=== PATIENT | female | born 1960 | race Caucasian/White ===

== ENCOUNTER → 2017-10-07 | Outpatient (CLI) | payer OTHER ==
--- NOTE | 2017-10-07 09:24 | XR ---
EXAMINATION TYPE: XR chest 2V DATE OF EXAM: 10/07/2017 COMPARISON: NONE TECHNIQUE: PA and lateral views submitted. HISTORY: Smoking FINDINGS: The lungs are clear and there is no pneumothorax, pleural effusion, or focal pneumonia. Atheroscler otic change aorta. No overt failure. IMPRESSION: 1. No acute process.
--- NOTE | 2017-10-07 09:25 | XR ---
EXAMINATION TYPE: XR knee complete RT DATE OF EXAM: 10/07/2017 COMPARISON: NONE HISTORY: Pain TECHNIQUE: Four views are submitted. FINDINGS: Osseous structures are intact. No acute fracture seen. Mild diffuse osteopenia. Mild narrowing of t he medial compartment of the knee joint. IMPRESSION: 1. No acute fracture or dislocation. 2. Mild arthropathy.
--- NOTE | 2017-10-07 09:26 | XR ---
EXAM TYPE: LUMBAR SPINE X RAY SERIES COMPARISON: NONE HISTORY: Pain TECHNIQUE: 3 views are submitted. FINDINGS: Alignment is anatomic. The pedicles are intact. The transverse processes are intact. There is vasc ular calcifications. Facet arthropathy and degenerative disc disease at levels L3-S1 with the most ma rked findings at L5-S1. IMPRESSION: 1. Multilevel degenerative disc disease with most marked findings at L5-S1.
== END | disposition home or self-care (01) ==
LOC: RADXRMAIN 08:14
PROVIDERS: ATTEND Family Medicine
DX: M51.37 Other intervertebral disc degeneration, lumbosacral region (principal); M12.861 Other specific arthropathies, not elsewhere classified, right knee; Z87.891 Personal history of nicotine dependence
CPT/HCPCS: 71046; 72100

== ENCOUNTER → 2017-10-07 | Outpatient (CLI) | payer BC, OTHER ==
--- NOTE | 2017-10-11 08:33 | MM ---
Reason for exam: screening (asymptomatic). Last mammogram was performed 13 years and 4 months ago. History: Patient is postmenopausal. Family history of breast cancer in 2 paternal aunts, breast cancer in aunt, and premenopausal breast cancer in sister. Physical Findings: A clinical breast exam by your physician is recommended on an annual basis and results should be correlated with mammographic findings. MG Screening Mammo w CAD Bilateral CC and MLO view(s) were taken. No prior studies available for comparison. There are scattered fibroglandular densities. 1.2cm ovoid nodule 6 o'clock central right breast. Irregular focal asymmetry upper outer quadrant left breast at a middle depth. ASSESSMENT: Incomplete: need additional imaging evaluation, BI-RAD 0 RECOMMENDATION: Special view mammogram of both breasts. If lesion persists on supplemental views, image directed ultrasound is recommended. [facility] will attempt to contact patient to return for supplemental views and ultrasound if indicated.
== END | disposition home or self-care (01) ==
LOC: RADMAMWWP 07:47
PROVIDERS: ATTEND Family Medicine
DX: Z12.31 Encounter for screening mammogram for malignant neoplasm of breast (principal); Z80.3 Family history of malignant neoplasm of breast
CPT/HCPCS: 71046; 72100; 77067

== ENCOUNTER → 2019-11-07 | Outpatient (CLI) | payer OTHER ==
--- NOTE | 2019-11-07 14:58 | MM ---
Reason for exam: additional evaluation requested from prior study. Last mammogram was performed 2 years and 1 month ago. History: Patient is postmenopausal. Family history of breast cancer in 2 paternal aunts at age 50, breast cancer in aunt at age 50, and premenopausal breast cancer in sister at age 60. Physical Findings: Nurse did not find any significant physical abnormalities on exam. MG Diagnostic Mammo w CAD JONES Bilateral CC and MLO view(s) were taken. LM and XCCL view(s) were taken of the left breast. Prior study comparison: October 07, 2017, bilateral MG screening mammo w CAD. The breast tissue is heterogeneously dense. This may lower the sensitivity of mammography. Finding: There is an intermediate concern, suspicious 11 x 12 mm equal density (isodense), spiculated irregular mass located 10 cm from the nipple in the upper outer quadrant, middle position of the left breast. There is an oval density right lower inner quadrant, 5cm from the nipple. New finding since October 07, 2017. These results were verbally communicated with the patient and result sheet given to the patient on 11/07/19. ASSESSMENT: Incomplete: need additional imaging evaluation, BI-RAD 0 RECOMMENDATION: Ultrasound of both breasts.
--- NOTE | 2019-11-07 15:00 | USB ---
Reason for exam: additional evaluation requested from abnormal screening. History: Patient is postmenopausal. Family history of breast cancer in 2 paternal aunts at age 50, breast cancer in aunt at age 50, and premenopausal breast cancer in sister at age 60. US Breast Limited BILAT Right limited breast ultrasound including focal area of concern, retroareolar and axilla demonstrates a 1.1 x 0.5 x 0.9cm cystic lesion at 5 o'clock. Left limited breast ultrasound including focal area of concern, retroareolar and axilla demonstrates a 1.8 x 1.3 x 1.3cm spiculated, solid, hypoechoic lesion at 12 o'clock for which a biopsy is recommended. These results were verbally communicated with the patient and result sheet given to the patient on 11/07/19. ASSESSMENT: Highly suggestive of malignancy, BI-RAD 5 RECOMMENDATION: Surgical consultation and ultrasound core biopsy of the left breast. Called Dr. Little's office with mammographic findings and has scheduled an appointment for the patient for 11/16/19 at 7:[address] Roth. Biopsy scheduled for 11/22/19 at 2:00. PRELIMINARY REPORT CALLED AND FAXED TO DR. ROTH ON 11/07/19.
== END ==
LOC: RADMAMWWP 12:52
PROVIDERS: ATTEND Internal Medicine
DX: R92.8 Other abnormal and inconclusive findings on diagnostic imaging of breast (principal)
CPT/HCPCS: 77066

== ENCOUNTER → 2019-11-22 | Outpatient (CLI) | payer OTHER ==
[2019-11-22 09:31] VITALS: BP 148/81; PULSE 54; RESP 18; TEMP 98.2
--- NOTE | 2019-11-22 10:24 | P.GSHP ---
History of Present Illness H&P Date: 11/22/19 Chief Complaint: abnormal left breast mammogram and ultrasound Cindy is a 59-year-old white female seen in consultation for Dr. Little who presents for breast evaluation secondary to an abnormal mammogram and ultrasound. The mammogram was a bilateral mammogram performed on . This revealed an 11 x 12 mm equal density irregular mass at 10:00 in the left breast in the upper outer quadrant. A right lower inner quadrant density was seen 5 cm from the nipple. She subsequently underwent an ultrasound of both breasts. The left breast revealed a 1.8 x 1.3 cm spiculated solid hypoechoic lesion at 12:00 for which biopsy was recommended. The right breast revealed a 1.1 cm cystic lesion at 5:00. The recommendation is for biopsy of the left breast. The patient does not feel anything of concern in her breast. Her last mammgram was eight years ago. She is not complaining of any nipple discharge pain or changes in her breasts. She has not had any recent trauma or infection in the breast. She's not had a breast biopsy in the past. Caffeine: 2 cups per day Smokin/PPD for 30 years chocolate: none Family History: two paternal aunts with breast cancer in 60's of breast cancer sister: breast cancer in 50's Hormonal History: menarche: 13 , breast fed: none, age at first : 19 menopause: 51 BCP: none hormones: none Past Surgical History: 2 C Sections cardiac stint 2003 Medical History: coronary artery disease hypothyroid Social HIstory: smoke: 1/PPD alcohol: none drugs: none - Constitutional Constitutional: Reports sweats - EENT Eyes: denies blurred vision, denies pain Ears: deny: decreased hearing, tinnitus Ears, nose, mouth and throat: Denies headache, Denies sore throat - Breasts Breasts: bilateral: as per HPI - Cardiovascular Comment: cardiac stint status post Myocardial infarction Cardiovascular: Reports high blood pressure - Respiratory Comment: smoker - Gastrointestinal Gastrointestinal: Denies abdominal pain, Denies diarrhea, Denies nausea, Denies vomiting - Genitourinary (Female) Genitourinary: Denies dysuria, Denies hematuria - Menstruation Menstruation: Reports postmenopausal - Musculoskeletal Musculoskeletal: Denies myalgias - Integumentary Integumentary: Denies pruritus, Denies rash - Neurological Neurological: Denies numbness, Denies weakness - Psychiatric Psychiatric: Reports anxiety, Denies depression - Endocrine Comment: hypothyroid Endocrine: Denies fatigue, Denies weight change - Hematologic/Lymphatic Comment: aspirin 81mg - Allergic/Immunologic Allergic/Immunologic: Reports as per HPI Past Medical History Past Medical History: Hypertension, Thyroid Disorder History of Any Multi-Drug Resistant Organisms: None Reported Additional Past Surgical History / Comment(s): CARDIAC STENT PLACED 2003 Past Anesthesia/Blood Transfusion Reactions: No Reported Reaction Past Psychological History: No Psychological Hx Reported Smoking Status: Current every day smoker Past Alcohol Use History: None Reported Past Drug Use History: Marijuana Medications and Allergies Home Medications Medication Instructions Recorded Confirmed Type Aspirin [Adult Low Dose Aspirin EC] 81 mg PO DAILY 11/09/19 11/22/19 History Atenolol 25 mg PO DAILY 11/09/19 11/22/19 History Levothyroxine Sodium [Synthroid] 88 mcg PO DAILY 11/09/19 11/22/19 History Lisinopril [Zestril] 40 mg PO DAILY 11/09/19 11/22/19 History Multivitamins, Thera [Multivitamin 1 tab PO DAILY 11/09/19 11/22/19 History (formulary)] Zolpidem Tartrate [Ambien] 10 mg PO HS 11/09/19 11/22/19 History Vortioxetine Hydrobromide 20 mg PO DAILY 11/22/19 11/22/19 History [Trintellix] Allergies Allergy/AdvReac Type Severity Reaction Status Date / Time No Known Allergies Allergy Verified 11/22/19 09:25 Surgical - Exam Vital Signs Temp Pulse Resp BP Pulse Ox 98.2 F 54 L 18 148/81 96 11/22/19 09:28 11/22/19 09:28 11/22/19 09:28 11/22/19 09:28 11/22/19 09:28 BMI 34.5 - General well developed, well nourished, no distress, obese - Eyes normal ocular movement - ENT no hearing loss, no congestion - Neck no masses, trachea midline - Respiratory normal expansion, normal respiratory effort, clear to percussion, clear to auscultation - Cardiovascular Rhythm: regular Heart Sounds: normal: S1, S2 - Abdomen Abdomen: soft, non tender, no guarding, no rigid, no rebound - Integumentary normal turgor 1 cm skin lesion under left eye suspicious for basal cell cancer - Neurologic no disoriented, no combative - Musculoskeletal normal gait, normal posture - Psychiatric oriented to time, oriented to person, oriented to place, speech is normal, memory intact breast exam BRA 40D ptosis grade 3 inspection: No skin lesions of concern, mild pocking related to probable skin cystic changes inferior aspect of right breast, no nipple inversion, no evidence of active infection at this time Papation: right breast: Superficial exam fibrocystic changes, no dominant masses or nodules of concern, some mild pocketing of the skin most likely related to cystic changes which have healed Right axilla: No adenopathy of concern Left breast: Multi-positional exam fibrocystic changes particular attention in the upper outer quadrant area does not reveal any palpable lesion Left axilla: No adenopathy of concern Results mammogram and ultrasound reviewed Assessment and Plan Assessment: Impression: coronary artery disease hypothyroid Mammographic abnormality left breast Ultrasound abnormality near the left breast Fibrocystic breast changes Family history breast cancer Patient coronary stent in place status post myocardial infarction 2003 Plan: 1. Ultrasound guided core biopsy left breast Lesion is highly suspicious of this were negative would recommend needle local excisional biopsy in the operating room and consider discordant 2. I've had a discussion with the patient regarding the probable pathology and we are going to obtain a tentative or date 3. Clearance from Dr. Little 4. Clearance from cardiology 5. Presentation of case at tumor board Cc: Dr. Little, Dr. Robb encounter 50 minutes, > 50% of time in planning and counselling
== END ==
LOC: WWCWWP 09:12
PROVIDERS: ATTEND Surgery
DX: Z53.9 Procedure and treatment not carried out, unspecified reason (principal)

== ENCOUNTER → 2019-11-22 | Day surgery (SDC) | payer OTHER ==
[2019-11-22 13:31] VITALS: RESP 16
[2019-11-22 14:35] VITALS: BP 119/78; PULSE 64; TEMP 98.3
--- NOTE | 2019-11-22 16:25 | USB ---
EXAMINATION TYPE: US biopsy breast VAD LT, MG diagnostic mammo LT wo CAD DATE OF EXAM: 11/22/2019 CLINICAL HISTORY: R92.8 abn mammogram. TECHNIQUE: Ultrasound guided core biopsy of left breast. COMPARISON: 11/07/2019 FINDINGS: The procedure of ultrasound guided core biopsy was explained to the patient. Benefits, alternatives, and risks were discussed. An informed consent was then obtained. Preprocedural timeout was performed. The patient was placed in supine positioning for imaging and for the procedure. The overlying skin was prepped and draped in usual sterile fashion. 10 cc of 1% lidocaine was used as anesthetic into the skin and subcutaneous tissue up to a 1.8 cm mass at the 12:00 position in the left breast. Under ultrasound guidance, a 12-gauge vacuum assisted biopsy gun device was used to obtain 6 core samples. Following this, a ribbon-shaped biopsy marker was left in the mass. The patient tolerated the procedure well without any immediate complication. The patient was kept in the radiology department for short stay after the procedure and then discharged home in stable condition. Postprocedure mammogram demonstrates appropriate biopsy marker placement without migration. IMPRESSION: Successful, uncomplicated ultrasound guided core biopsy of area of a highly suspicious 1.8 cm mass at the 12:00 position in the left breast, full pathology results to follow. 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 Adjacent breast shows fibrotic breast parenchyma. See note. Recommendation Surgical consult of the left breast. Definitive surgical management. BRITTANY
== END ==
LOC: RADUSWWP 09:19
PROVIDERS: ATTEND Surgery
DX: C50.912 Malignant neoplasm of unspecified site of left female breast (principal); N60.32 Fibrosclerosis of left breast; Z17.0 Estrogen receptor positive status [ER+]
CPT/HCPCS: 88305; 88342; 88341; 77065; 19083; A4648; J2001

== ENCOUNTER → 2019-12-06 | Outpatient (CLI) | payer OTHER ==
[2019-12-06 12:55] VITALS: BP 116/80; PULSE 77; RESP 18; TEMP 97.9
--- NOTE | 2019-12-06 14:03 | P.PN ---
Subjective Progress Note Date: 12/06/19 Principal diagnosis: stage IA left breast cancer Cindy is a 59-year-old white female who underwent an ultrasound-guided core biopsy of the left breast on 11-22-19. Her pathology revealed a low-grade infiltrating ductal carcinoma. This is approximately 1.2 cm in size. This is a T1 N0 M0 ER/MO positive HER-2/asim negative G N1 lesion making this a stage IA lesion. The patient tolerated the biopsy with no difficulty. Her bra size is 38D on the left and 38 mL on the right. She has had asymmetry of the breast for a long period of time. We will discuss surgical treatment options which would include mastectomy plus or minus reconstruction, or lumpectomy via a reduction mastopexy incision versus a [id number] approach. The patient wishes the procedure to be done via the reduction mastopexy incision. She understands that she will have asymmetry of the breast and a symmetry procedure on the contralateral breast will be done after radiation therapy on the left side. The patient has also been told about risks including bleeding, infection, and reaction to the anesthetic. Additional positive margin would require further surgery as with inability to locate and remove the area of concern at the first surgery secondary to the clip moving her the needle slipping. The patient and her daughter understand that she wishes to proceed. Objective - Vital Signs Vital signs: Vital Signs Temp 97.9 F 12/06/19 12:53 Pulse 77 12/06/19 12:53 Resp 18 12/06/19 12:53 BP 116/80 12/06/19 12:53 Pulse Ox 96 12/06/19 12:53 Intake & Output 12/05/19 12/06/19 12/06/19 18:59 06:59 18:59 Weight 81.647 kg - Exam BMI 30.9 - Constitutional General appearance: Present: obese - EENT Eyes: Present: EOMI ENT: Present: hearing grossly normal - Respiratory Respiratory: bilateral: CTA - Cardiovascular Rhythm: regular Heart sounds: normal: S1, S2 - Integumentary Integumentary: Present: normal turgor - Musculoskeletal Musculoskeletal: Present: gait normal - Psychiatric Psychiatric: Present: A&O x's 3, appropriate affect, intact judgment & insight - Additional findings Additional findings: Breast examination: Inspection: Right breast smaller than left breast Grade 3 ptosis Left breast: Area of biopsy site clean and dry no evidence of infection Left axilla: No adenopathy of concern Assessment and Plan Assessment: Impression: 1. Stage IA left breast cancer 2. Patient prior myocardial infarction cardiac clearance necessary 3. Patient smoker have requested that she stop smoking before the surgery 4. Clearance by Dr. Little 5. stop aspirin if ok with cardiology Plan: 1. Needle localization lumpectomy left breast via reduction mastopexy incision with tissue rearangement 2. [place] node injection, sentinel node biopsy possible axillary node dissection the left axilla 3. Obtain clearance from cardiology and Dr. Little CC: Dr. Little encounter 45 minutes, > 50% of time in planning and counselling Time with Patient: Greater than 30
== END ==
LOC: WWCWWP 12:40
PROVIDERS: ATTEND Surgery
DX: Z53.9 Procedure and treatment not carried out, unspecified reason (principal)

== ENCOUNTER 2019-12-11 07:38 | Day surgery (SDC) | payer OTHER ==
[2019-12-10 09:55] VITALS: BMI 30.9
[~2019-12-11 07:38] MED LIST: DEXAMETHASONE SOD PHOSPHATE 10 MG/ML 1 ML VIAL IV ONE; HEPARIN SODIUM,PORCINE 5,000 UNIT/ML 1 ML VIAL SQ ONE; HYDROmorphone 0.5 MG/0.5 ML SYRINGE IVP PRN; LIDOCAINE 1% (10MG/ML) FOR IV START INTRADERMA PRN; ONDANSETRON 4 MG/2 ML VIAL IVP ONE; Pre Op ABX Message 1 EACH MISC MISCELLANE ONE; SCOPOLAMINE 1.5MG/72HR PATCH TRANSDERM ONE
[2019-12-11] MEDS: LACTATED RINGERS 1,000 ML IV SCH ×2 (08:00→12:52)
[2019-12-11] MEDS ORDERED: ALPRAZolam 0.5 MG TAB PO ONE (08:12)
[2019-12-11] MEDS ORDERED: LIDOCAINE 1% INJ 10MG/ML (20 ML MDV) SQ ONE ×4 (08:58→11:45)
[2019-12-11] MEDS ORDERED: LIDOCAINE 1%-EPI 1:100,000 20 ML VIAL SQ ONE (08:58)
--- NOTE | 2019-12-11 09:36 | NM ---
EXAMINATION TYPE: NM sentinel node injection DATE OF EXAM: 12/11/2019 COMPARISON: NONE HISTORY: Left breast cancer. TECHNIQUE AND FINDINGS: The procedure of sentinel lymph node injection was explained to the patient. The benefits, alternatives, and risks were discussed. An informed consent was then obtained. Overlying skin is cleaned with sterile alcohol. Following this, 520 uCi Tc99m Tilmanocept was inject ed in the upper outer aspect of the left nipple intradermally. The patient tolerated the procedure well without any immediate complication. The patient was kept in the radiology department for short stay after the procedure and then taken to surgery for surgical p rocedure what is presumed intraoperative gamma probe will be used for sentinel lymph node detection. IMPRESSION: Left breast radiotracer injection for sentinel node localization as above.
--- NOTE | 2019-12-11 09:44 | P.PN ---
Progress Note - Text Progress Note Date: 12/11/19 Initially we were going to remove this tumor via a reduction mammoplasty technique. However with the leal virus situation The patient has opted for the simplest technique possible and we will proceed to do a lumpectomy withut a reduction mammoplasty at this time. She understands the risks and benefits and wishes to proceed.
[2019-12-11] MEDS ORDERED: SUCCINYLCHOLINE CHLORIDE 100 MG/5 ML SYR IV ONE (10:00)
[2019-12-11] MEDS ORDERED: LIDOCAINE 1% INJ 10MG/ML (20 ML MDV) ONE (10:00)
[2019-12-11] MEDS ORDERED: MIDAZOLAM 2 MG/2 ML VIAL ONE (10:00)
[2019-12-11] MEDS ORDERED: ePHEDrine SULFATE/0.9% NACL/PF 50 MG/5 ML SYRINGE IV ONE (10:00)
[2019-12-11] MEDS ORDERED: HYDROmorphone (PF) 1 MG/ML ONE (10:00)
[2019-12-11] MEDS ORDERED: fentaNYL (PF) 50 MCG/ML 2 ML AMP ONE (10:00)
[2019-12-11] MEDS ORDERED: PROPOFOL 10 MG/ML 20 ML VIAL IV ONE (10:00)
[2019-12-11] MEDS ORDERED: PHENYLEPHRINE-0.9% NACL SYG 1 MG/10 ML SYRINGE ONE (10:00)
[2019-12-11] MEDS ORDERED: LACTATED RINGERS 1,000 ML IV ONE (10:58)
--- NOTE | 2019-12-11 11:03 | MM ---
EXAMINATION TYPE: MG pre op needle loc LT, MG surgical specimen LT DATE OF EXAM: 12/11/2019 COMPARISON: Prior mammogram and ultrasound November 22, 2019 and older studies. CLINICAL HISTORY: Low grade infiltrating ductal carcinoma on recent ultrasound- guided biopsy. TECHNIQUE: Needle localization with wire placement and surgical excision of area of concern in the left breast. FINDINGS: The procedure of needle localization with wire placement and than surgical excision was explained to the patient. Benefits, alternatives, and risks were discussed. An informed consent was then obtained. The shortest pathway for procedure was chosen. Shortest pathway was lateral approach. Persistent just under 1 cm spiculated lesion with adjacent clip. The overlying skin was prepped and draped in usual sterile fashion. Lidocaine buffered was used as anesthetic into the skin. Lidocaine with epinephrine is used as anesthetic into the deeper tissue up to the level of area of concern. A 7 cm needle was used. It was placed via a lateral approach under mammographic guidance. Subsequent 90 degrees mammogram show the needle to be in satisfactory position relative to the targeted area. At this point, wire was placed and the needle was withdrawn. The wire was fixed to patient's skin. Images were marked for surgeon. The patient tolerated the procedure well without any immediate complication. The patient was kept in the radiology department for short stay after the procedure and then taken to surgery for surgical excision. Targeted lesion and clip and wire are identified in specimen mammogram. The patient was kept in hospital for short stay after the procedure and then discharged home in stable condition. IMPRESSION: Successful, uncomplicated needle localization with wire placement and surgical excision of targeted 1 cm spiculated lesion and clip in the left breast, full pathology results to follow. Pathology Results: Malignant A. LEFT SENTINEL LYMPH NODE, BIOPSY: Four lymph nodes negative for metastatic adenocarcinoma as documented on H+E as well as appropriately controlled immunohistochemical stains for cytokeratin 7 and JER. B. LEFT BREAST, NEEDLE LOCALIZATION LUMPECTOMY: 12 x 10 x 8 mm infiltrating low grade duct carcinoma associated with microcalcifications and duct carcinoma in situ (cribriform type). Tumor extends to within 3 mm of the purple inked/posterior margin of excision (closest margin). Appropriately controlled immunohistochemical studies for Calponin, p63 and smooth muscle myosin heavy chain document the absence of myoepithelial cells rimming malignant ducts on blocks B2 and B3. These findings are confirmatory of infiltrating ductal carcinoma in both blocks and allow accurate measurement of the distance of invasive carcinoma away from inked margins. See note. Recommendation Surgical consult of the left breast. MTDD
--- NOTE | 2019-12-11 11:59 | P.OP ---
Date of Procedure: 12/11/19 Preoperative Diagnosis: left breast cancer Postoperative Diagnosis: same Procedure(s) Performed: Left breast needle localization excisional lumpectomy, tissue transfer, sentinel node biopsy Anesthesia: GARRYA Surgeon: Lynette Roht Estimated Blood Loss (ml): 10 IV fluids (ml): 1,500 Pathology: other (Breast tissue, sentinel lymph node) Condition: stable Disposition: same day Indications for Procedure: Biopsy-proven left breast cancer Operative Findings: Fibrofatty breast breast tissue Description of Procedure: Edward is a 51-year-old white female who was diagnosed with a left breast cancer. She was initially considering an ankle plastic reduction mammoplasty for with resection of the tumor. However, secondary to cholelithiasis she wanted the simplest procedure which we assured tissue to be discharged home the same day. We therefore have opted for a lumpectomy and sentinel node biopsy. The patient is aware of the risks and benefits and wishes to proceed. The patient was brought to the operating room and the left breast and axilla were prepped and draped in a sterile fashion. An incision was made at the area of the needle and dissected to the end of the needle. Surrounding tissue was excised. Radiograph of the specimen revealed the area of concern had been removed. The wound was irrigated and examined for hemostasis. Titanium clips were placed. Prior to sending the specimen for radiographic was painted for orientation. The tissues were then mobilized approximately 50 cm of tissue were mobilized to close the defect. The defect was closed drawing the tissue pillars together using 3-0 Vicryl suture. The subcutaneous tissues were closed using 3-0 Vicryl suture followed by 4-0 Monocryl. The instruments and gloves were changed appropriately. The area of the axilla was approached. In the axilla the neoprobe was used to identify the area of greatest radioactivity. An incision was made at this site and surrounding tissue was carefully dissected into the area of the axillary tissue. An enlarged lymph node was palpated and this was radioactive. This was removed using the Harmonic scalpel as well as careful dissection. The 10 second count an open was 4430. The background count was approximately 40. The patient did not have additional palpable adenopathy of concern. The lymph node was sent for permanent section. Evaluated the axilla for hemostasis. It was well irrigated. The deep tissues were closed using 3-0 Vicryl suture. The subcutaneous tissue was closed with a 3-0 Vicryl suture followed by 4-0 Monocryl. Surgical glue was applied to both incisions. The patient tolerated the procedure in stable condition. All instrument and sponge counts were correct at the end of the case.
--- NOTE | 2019-12-11 12:00 | P.NAPBC ---
NAPBC Queries - NAPBC Queries Was patient's case review presented at [facility] tumor board? If no, comment.: No (tumor board cancelled secondary to leal virus) Was patient's pathology reviewed at [facility]? If no, comment.: Yes Was breast conservation surgery offered? If no, comment.: Yes Was sentinel node biopsy offered? If no, comment.: Yes Was diagnosis confirmed by percutaneous core biopsy? If no, comment.: Yes Is patient mastectomy patient?: No Clinical Stage: Stage IA
--- NOTE | 2019-12-11 12:02 | P.DS ---
Providers Attending physician: Lynette Roth Primary care physician: Anabel Sheth Plan - Discharge Summary Discharge Rx Participant: Yes New Discharge Prescriptions: No Action Aspirin [Adult Low Dose Aspirin EC] 81 mg PO DAILY Lisinopril [Zestril] 40 mg PO DAILY Multivitamins, Thera [Multivitamin (formulary)] 1 tab PO DAILY Zolpidem Tartrate [Ambien] 10 mg PO HS ALPRAZolam [Xanax] 0.25 mg PO Q8HR PRN PRN Reason: Anxiety Atenolol [Tenormin] 50 mg PO DAILY Vortioxetine Hydrobromide [Trintellix] 10 mg PO QAM Levothyroxine Sodium [Synthroid] 175 mcg PO QAM Furosemide [Lasix] 20 mg PO DAILY PRN PRN Reason: swelling Discharge Medication List Aspirin [Adult Low Dose Aspirin EC] 81 mg PO DAILY 11/09/19 [History] Lisinopril [Zestril] 40 mg PO DAILY 11/09/19 [History] Multivitamins, Thera [Multivitamin (formulary)] 1 tab PO DAILY 11/09/19 [History] Zolpidem Tartrate [Ambien] 10 mg PO HS 11/09/19 [History] ALPRAZolam [Xanax] 0.25 mg PO Q8HR PRN 12/10/19 [History] Atenolol [Tenormin] 50 mg PO DAILY 12/10/19 [History] Furosemide [Lasix] 20 mg PO DAILY PRN 12/10/19 [History] Levothyroxine Sodium [Synthroid] 175 mcg PO QAM 12/10/19 [History] Vortioxetine Hydrobromide [Trintellix] 10 mg PO QAM 12/10/19 [History] Follow up Appointment(s)/Referral(s): Lynette Roth MD [STAFF PHYSICIAN] - 1 Week Activity/Diet/Wound Care/Special Instructions: do not dirve until seen by Dr. Bangura wear bra at all times may shower after 48 hours Discharge Disposition: HOME SELF-CARE
[2019-12-11 12:26] VITALS: TEMP 97.6
[2019-12-11 13:05] VITALS: RESP 17
[2019-12-11 13:21] VITALS: BP 127/72; PULSE 84
== END 2019-12-11 13:36 | disposition home or self-care (01) ==
LOC: OR 07:38
PROVIDERS: ATTEND Surgery
DX: C50.912 Malignant neoplasm of unspecified site of left female breast (principal); I10 Essential (primary) hypertension; I25.10 Atherosclerotic heart disease of native coronary artery without angina pectoris; F17.210 Nicotine dependence, cigarettes, uncomplicated; E78.2 Mixed hyperlipidemia; E07.9 Disorder of thyroid, unspecified; Z79.82 Long term (current) use of aspirin; Z79.890 Hormone replacement therapy; Z79.899 Other long term (current) drug therapy; Z79.02 Long term (current) use of antithrombotics/antiplatelets; Z98.61 Coronary angioplasty status
CPT/HCPCS: 38525; 19301; 88342; 88307; 88341; 76098; 38792; A9520; J2250; J1644; J1100; J2405; J2001; J3010; J1170; J2370; J0330; J2704

== ENCOUNTER 2020-11-09 12:41 | Emergency (ER) | payer OTHER ==
[2020-11-09 12:56] VITALS: RESP 18; TEMP 97.9
--- NOTE | 2020-11-09 13:18 | XR ---
EXAMINATION TYPE: XR ankle complete RT DATE OF EXAM: 11/09/2020 COMPARISON: NONE HISTORY: Pain TECHNIQUE: Frontal, lateral and oblique images of the right ankle are obtained. COMPARISON: None. FINDINGS: Oblique fracture distal fibula with displacement noted of approximately 3 mm. Medial malleo lar fracture with displacement noted of approximately 5 mm. Anterior malleolar fracture component sug gested. There is instability seen about the ankle mortise. Extensive soft tissue swelling. IMPRESSION: Fractures as noted above.
--- NOTE | 2020-11-09 13:51 | ED ---
Lower Extremity Injury HPI - General Chief Complaint: Extremity Injury, Lower Stated Complaint: Fall,R Ankle Fx Time Seen by Provider: 11/09/20 12:45 Source: patient, EMS Mode of arrival: EMS Limitations: physical limitation - History of Present Illness Initial Comments: Cindy is a pleasant 60-year-old female who presents to the emergency department today via ambulance for evaluation of right ankle injury. Patient reports that she tripped over a Chihuahua falling to the ground and immediately noted pain in her right ankle and was unable to bear weight so EMS was called. EMS reports obvious deformity - Related Data Home Medications Medication Instructions Recorded Confirmed Aspirin [Adult Low Dose Aspirin EC] 81 mg PO DAILY 11/09/19 12/11/19 Multivitamins, Thera [Multivitamin 1 tab PO DAILY 11/09/19 12/11/19 (formulary)] Zolpidem Tartrate [Ambien] 10 mg PO HS 11/09/19 12/11/19 lisinopriL [Zestril] 40 mg PO DAILY 11/09/19 12/11/19 ALPRAZolam [Xanax] 0.25 mg PO Q8HR PRN 12/10/19 12/11/19 Atenolol [Tenormin] 50 mg PO DAILY 12/10/19 12/11/19 Furosemide [Lasix] 20 mg PO DAILY PRN 12/10/19 12/11/19 Levothyroxine Sodium [Synthroid] 175 mcg PO QAM 12/10/19 12/11/19 Vortioxetine Hydrobromide 10 mg PO QAM 12/10/19 12/11/19 [Trintellix] Allergies Allergy/AdvReac Type Severity Reaction Status Date / Time No Known Allergies Allergy Verified 11/09/20 12:55 Review of Systems ROS Statement: Those systems with pertinent positive or pertinent negative responses have been documented in the HPI. ROS Other: All systems not noted in ROS Statement are negative. Past Medical History Past Medical History: Hypertension, Thyroid Disorder Additional Past Medical History / Comment(s): breast cancer, has a "bad knee"-walks slow Last Myocardial Infarction Date:: 02/2004 History of Any Multi-Drug Resistant Organisms: None Reported Past Surgical History: Breast Surgery, Section, Heart Catheterization With Stent Additional Past Surgical History / Comment(s): CARDIAC STENT PLACED 2003 Past Anesthesia/Blood Transfusion Reactions: No Reported Reaction Date of Last Stent Placement:: 2003 Past Psychological History: No Psychological Hx Reported Past Alcohol Use History: None Reported Past Drug Use History: Marijuana - Past Family History Mother Family Medical History: Cancer General Exam - General Exam Comments Initial Comments: Physical Exam GENERAL: Patient is well-developed and well-nourished. Patient is nontoxic and well-hydrated and is in no distress. HENT: Normocephalic, Atraumatic. EYES: PERRL, EOMI PULMONARY: Unlabored respirations. CARDIOVASCULAR: RRR Warm and well perfused extremities ABDOMEN: Non-distended SKIN: No rashes or bruising : Deferred NEUROLOGIC: Alert and oriented Normal speech Normal gait MUSCULOSKELETAL: Obvious deformity and swelling of the right ankle, neurovascularly intact PSYCHIATRIC: No SI/HI Limitations: physical limitation Course Vital Signs 11/09/20 11/09/20 12:44 13:59 Temperature 97.9 F Pulse Rate 61 64 Respiratory 18 18 Rate Blood Pressure 131/92 123/77 O2 Sat by Pulse 96 95 Oximetry Medical Decision Making - Medical Decision Making She was seen and evaluated history is obtained from the patient and EMS Patient received pain medication in route to the hospital reports Significant improvement in discomfort X-rays confirm a bimalleolar fracture patient was splinted and given crutches patient will be discharged home to follow up with orthopedics outpatient Disposition Clinical Impression: Bimalleolar ankle fracture Disposition: HOME SELF-CARE Condition: Stable Instructions (If sedation given, give patient instructions): Ankle Fracture (DC) Is patient prescribed a controlled substance at d/c from ED?: No Referrals: Domenic Little MD [Primary Care Provider] - 1-2 days Don Milton MD [STAFF PHYSICIAN] - 1-2 days
[2020-11-09 14:41] VITALS: BP 137/91; PULSE 92
== END 2020-11-09 14:35 | disposition home or self-care (01) ==
LOC: EC 12:41
DX: S82.841A Displaced bimalleolar fracture of right lower leg, initial encounter for closed fracture (principal); I10 Essential (primary) hypertension; E07.9 Disorder of thyroid, unspecified; Z79.890 Hormone replacement therapy; Z79.899 Other long term (current) drug therapy; Z95.5 Presence of coronary angioplasty implant and graft; Z85.3 Personal history of malignant neoplasm of breast; W01.0XXA Fall on same level from slipping, tripping and stumbling without subsequent striking against object, initial encounter
CPT/HCPCS: 29515; 99283

== ENCOUNTER 2020-11-25 08:14 | Day surgery (SDC) | payer OTHER ==
[2020-11-19 13:15] VITALS: BMI 31.8
[~2020-11-25 08:14] MED LIST changes: -DEXAMETHASONE SOD PHOSPHATE 10 MG/ML 1 ML VIAL IV ONE; +DEXAMETHASONE SOD PHOSPHATE 4 MG/ML 1 ML VIAL IV ONE; -HEPARIN SODIUM,PORCINE 5,000 UNIT/ML 1 ML VIAL SQ ONE; -HYDROmorphone 0.5 MG/0.5 ML SYRINGE IVP PRN; +LACTATED RINGERS 1,000 ML IV SCH; +MIDAZOLAM 2 MG/2 ML VIAL IV PRN; -Pre Op ABX Message 1 EACH MISC MISCELLANE ONE; -SCOPOLAMINE 1.5MG/72HR PATCH TRANSDERM ONE; +fentaNYL (PF) 50 MCG/ML 2 ML AMP IVP PRN
[2020-11-25 09:51] VITALS: RESP 16; TEMP 98.1
--- NOTE | 2020-11-25 10:46 | P.ANPRN ---
Procedure Note - Anesthesia - Nerve Block Performed Right Adductor Canal Single Time Out Performed: Yes (921) Date of Procedure: 11/25/20 Procedure Start Time: : Procedure Stop Time: 09:33 Location of Patient: PreOp Indication: Acute Post-Operative Pain, Requested by Surgeon Specifically requested for management of pain by DrLuh: Amauri Cortés Sedation Type: Sedate with meaningful contact maintained Preparation: Sterile Prep Position: Supine Catheter: None Needle Types: Pajunk Needle Gauge: 21 Ultrasound used to visualize needle placement: Yes Ultrasound used to observe medication spread: Yes Injectate: 0.5% Ropivacaine (see comment for volume) (15cc + Decadron 4mg) Blood Aspirated: No Pain Paresthesia on Injection Noted: No Resistance on Injection: Normal Image Stored and Saved: Yes Events: Uneventful and Well Tolerated Right Popliteal Single Time Out Performed: Yes (921) Date of Procedure: 11/25/20 Procedure Start Time: :22 Procedure Stop Time: 09:26 Location of Patient: PreOp Indication: Acute Post-Operative Pain, Requested by Surgeon Specifically requested for management of pain by Dr.: Amauri Cortés Sedation Type: Sedate with meaningful contact maintained Preparation: Sterile Prep Position: Supine Catheter: None Needle Types: Pajunk Needle Gauge: 21 Ultrasound used to visualize needle placement: Yes Ultrasound used to observe medication spread: Yes Injectate: 0.5% Ropivacaine (see comment for volume) (15cc + decadron 4mg) Blood Aspirated: No Pain Paresthesia on Injection Noted: No Resistance on Injection: Normal Image Stored and Saved: Yes Events: Uneventful and Well Tolerated
[2020-11-25] MEDS ORDERED: NEOSTIGMINE 1 MG/ML 10 ML VIAL ONE (11:19)
[2020-11-25] MEDS ORDERED: SUCCINYLCHOLINE CHLORIDE 100 MG/5 ML SYR IV ONE (11:19)
[2020-11-25] MEDS ORDERED: ROCURONIUM 10 MG/ML (5 ML VIAL) IV ONE (11:19)
[2020-11-25] MEDS ORDERED: PROPOFOL 10 MG/ML 20 ML VIAL IV ONE (11:19)
[2020-11-25] MEDS ORDERED: fentaNYL (PF) 50 MCG/ML 2 ML AMP ONE (11:19)
[2020-11-25] MEDS ORDERED: ePHEDrine SULFATE/0.9% NACL/PF 50 MG/5 ML SYRINGE IV ONE (11:19)
[2020-11-25] MEDS ORDERED: MIDAZOLAM 2 MG/2 ML VIAL ONE (11:19)
[2020-11-25] MEDS ORDERED: GLYCOPYRROLATE 0.2 MG/ML 2 ML VIAL ONE (11:19)
[2020-11-25] MEDS ORDERED: DEXAMETHASONE SOD PHOSPHATE 4 MG/ML 1 ML VIAL ONE (11:19)
[2020-11-25] MEDS ORDERED: ROPIVACAINE 5 MG/ML 30 ML VIAL ONE (11:19)
[2020-11-25] MEDS ORDERED: LIDOCAINE 1% INJ 10MG/ML (20 ML MDV) ONE (11:19)
[2020-11-25] MEDS ORDERED: LACTATED RINGERS 1,000 ML IV ONE (12:13)
--- NOTE | 2020-11-25 13:17 | XR ---
EXAMINATION TYPE: XR ankle limited RT DATE OF EXAM: 11/25/2020 COMPARISON: NONE TECHNIQUE: One views submitted HISTORY: Post op FINDINGS: There is postoperative change in near anatomic alignment. There is soft tissue edema and emphysema. Surgical alona noted. IMPRESSION: 1. Postoperative change. Appears in near-anatomic alignment
--- NOTE | 2020-11-25 13:22 | FL ---
EXAMINATION TYPE: FL guidance operating room DATE OF EXAM: 11/25/2020 HISTORY: Fluoroscopy time 57 seconds of fluoroscopy provided. IMPRESSION: 1. Fluoroscopy time.
[2020-11-25 16:01] VITALS: BP 122/75; PULSE 67
--- NOTE | 2020-11-26 11:48 | OP ---
OPERATIVE REPORT DATE OF SURGERY: November 25, 2020. PREOPERATIVE DIAGNOSIS: Displaced bimalleolar fracture of the right ankle. POSTOPERATIVE DIAGNOSIS: Displaced bimalleolar fracture of the right ankle. PROCEDURE: Open reduction, internal fixation of bimalleolar ankle fracture, right. SURGEON: Amauri Cortés DPM ANESTHESIA: General with preoperative nerve block. HEMOSTASIS: Right thigh tourniquet at 250 mmHg. ESTIMATED BLOOD LOSS: Minimal. MATERIALS: One Arthrex precontoured lateral malleolar fracture plate with associated screws and two 4.0 cannulated screws. INJECTABLES: None. SPECIMENS: None. COMPLICATIONS: None. OPERATIVE REPORT IS FOLLOWS: Prior to the patient being brought to the operative room, Anesthesia administered a nerve block on the right lower extremity utilizing ultrasound guidance and mild sedation. The patient was then transferred to the operating room and placed on the table in supine position. Timeout was taken to confirm correct patient identifiers, correct site of surgery and correct procedure. When the room was in agreement, the patient was intubated and placed under general anesthetic. A bump was placed underneath the right hip to internally rotate the right leg. A well-padded tourniquet was placed on the right thigh and then the right leg was prepped and draped in usual manner. The leg was exsanguinated with an Esmarch bandage and then elevated for 2 minutes. The knee was slightly flexed and the tourniquet was inflated to 250 mmHg. Attention was directed over the lateral aspect of the ankle where a linear incision was made over the lateral malleolus. This deepened down to the subcutaneous tissue careful to identify, avoid and retract any neurovascular structures and cauterize any bleeding vessels. Dissection was continued down to the periosteum which was incised down to fracture and reflected anteriorly and posteriorly. The fracture was identified and the fracture fragments to remove any hematoma or interposing soft tissue. Once that was completed, the ankle was held in inversion and then bone reduction clamps were used to rotate and reduce the fracture and then lock it in place. Once that was completed, fluoroscopy was used to check the alignment. There was restored length of the fibula and the fracture was well reduced. An interfragmentary screw was inserted from posterior to anterior perpendicular to the fracture line. This was due to the orientation of the fracture necessitating this approach. The screw head was buried flush so that it did not irritate the peroneal tendons. Once that was completed, the bone reduction forceps was removed and the fluoroscopy was used to make sure that the correction was maintained, which it was. Then an Arthrex precontoured lateral malleolar plate was placed over the fracture and then under fluoroscopy was positioned correctly and then temporarily fixated, three 3.5 locking screws were placed proximal to the fracture and then distal 3.0 locking screws were placed, each one under direct fluoroscopic visualization during the drilling process so that the ankle joint was not entered with a drill through the lateral gutter. Measurement of the screw length was done the same way and then all the screws were placed and then fluoroscopy was used to make sure that none of them were in the ankle joint, which they were not, however, they were all positioned correctly and the fracture was well reduced with maintained length of the fibula. The wound was irrigated with antibiotic saline. The deep closure was done with 2-0 Vicryl. Subcutaneous closure was done with 4-0 Monocryl. Skin closure was done with alona. Then attention was directed to the medial aspect of the ankle where a curvilinear incision made over the medial malleolus and then deepened down to the subcutaneous tissue careful to identify, avoid and retracting neurovascular structures and cauterizing the vessels. Dissection was then continued down to the periosteum which was incised just over the fracture itself from anterior to posterior. Any interposing soft tissue was removed with the ankle in slight inversion. Bone reduction forceps was used to reduce the fracture. Once that appeared to be completed, fluoroscopy was used to make sure that the reduction was complete, which it was with good contour of the ankle joint, guidewires for the 4.0 cannulated screws were inserted at the tip of the medial malleolus and advanced into the tibia under fluoroscopic visualization. The position was checked both in AP and lateral views. Once it was properly positioned over drill was performed just beyond the fracture line and then the screws were inserted across the guidewires and tightened until they compressed the fracture. Fluoroscopic images showed both screws were properly positioned and there was maintained reduction of the fracture line in overall excellent symmetry of the ankle joint. The guidewire was removed. The incision was irrigated with antibiotic saline. The deep closure was done with 2-0 Vicryl. Skin closure was done with alona. Nonadherent gauze was placed over all the incisions and a bulky dry dressing was applied to the right foot and ankle. The tourniquet was released and capillary refill returned to all digits of the right foot. The patient was then placed in a well- padded, well-molded posterior mold sugar-tong plaster splint and the ankle was held in neutral as it dried and then the patient was taken to recovery with vital signs stable. MMSANDY / KEONN: [id number] /
== END 2020-11-25 15:58 | disposition home or self-care (01) ==
LOC: OR 08:14
PROVIDERS: ATTEND Podiatrist
DX: S82.841A Displaced bimalleolar fracture of right lower leg, initial encounter for closed fracture (principal); W01.0XXA Fall on same level from slipping, tripping and stumbling without subsequent striking against object, initial encounter; I11.9 Hypertensive heart disease without heart failure; E78.5 Hyperlipidemia, unspecified; E03.9 Hypothyroidism, unspecified; F32.9 Major depressive disorder, single episode, unspecified; Z85.828 Personal history of other malignant neoplasm of skin; Z85.3 Personal history of malignant neoplasm of breast; Z98.891 History of uterine scar from previous surgery; Z98.890 Other specified postprocedural states; Z97.2 Presence of dental prosthetic device (complete) (partial); Z82.49 Family history of ischemic heart disease and other diseases of the circulatory system; I25.10 Atherosclerotic heart disease of native coronary artery without angina pectoris; I25.2 Old myocardial infarction; F17.210 Nicotine dependence, cigarettes, uncomplicated; Z79.890 Hormone replacement therapy; Z79.899 Other long term (current) drug therapy; Z79.891 Long term (current) use of opiate analgesic
CPT/HCPCS: 27814; 64447; 76942; 73600; C1713; J2250; J1100; J2710; J0690; J2405; J2001; J3010; J2795; J0330; J2704; 64445

== ENCOUNTER 2021-06-21 19:02 | Emergency (ER) | payer OTHER ==
--- NOTE | 2021-06-21 19:11 | ED ---
General Adult HPI - General Stated complaint: Possible Stroke Time Seen by Provider: 06/21/21 19:03 - History of Present Illness Initial comments: Dictation was produced using Nervog[employer] dictation software. please excuse any grammatical, word or spelling errors. Chief Complaint: 61-year-old feel past medical history of coronary artery dis ease, hypertension and NC presents emergency department for strokelike symptoms. History of Present Illness: An is a 61-year-old female she has multiple comorbidities. Patient has been having strokelike symptoms. According EMS is unclear what the time of onset was. Patient reports that may be she felt like she was abnormal 3 hours ago. She took a shower and laid down and tried to stand up felt like she couldn't walk. EMS upon arrival noted the patient seemed to have flaccid paralysis to her left upper and left lower extremity. In route to the emergency department her symptoms improved. She did report to them that she had a headache. Denies any headache currently.Patient reports that she was brought in by EMS after her roommate called. Roommate allegedly normal vital patient has been much more weak and lethargic recently. Patient has a history of stroke but she does have extensive history of coronary artery disease. Family rub bedside reports that patient appears to be at baseline currently. Patient states she smokes marijuana and cigarettes daily. He does not ever remember having any episodes of left-sided focal neurologic deficits. Patient denies any history of strokes. Family member bedside reports that patient seems to be amnestic to the events today. The ROS documented in this emergency department record has been reviewed and confirmed by me. Those systems with pertinent positive or negative responses have been documented in the HPI. All other systems are other negative and/or noncontributory. PHYSICAL EXAM: General Impression: Alert and oriented x3, not in acute distress HEENT: Normocephalic atraumatic, extra-ocular movements intact, pupils equal and reactive to light bilaterally, mucous membranes moist. Cardiovascular: Heart regular rate and rhythm Chest: Able to complete full sentences, no retractions, no tachypnea Abdomen: abdomen soft, non-tender, non-distended, no organomegaly Musculoskeletal: Pulses present and equal in all extremities, no peripheral edema Motor: no focal deficits noted Neurological: CN II-XII grossly intact, mild drift to the left lower extremity, NIH 1, non-aphasic, non-dysarthric Skin: Intact with no visualized rashes Psych: Normal affect and mood ED course: 61-year-old female presents emergency department for strokelike symptoms. He is unclear when the time of onset was. Patient has stable vital signs per EMS. She had a normal blood sugar. Patient sent straight to CT from ambulance bay. Patient is NIH score of 1 Patient not TPA candidate due to rapidly improving symptoms and unclear time of onset. Computed tomography scan of the brain is unremarkable. Patient reevaluated in 8 o'clock p.m. She is not having any neurologic deficits. NIH is now 0. EKG interpretation: Ventricular rate 86, normal sinus rhythm, NM interval 200, QRS 130, QTc 543. No NM prolongation, no QTC prolongation, . No old EKG for comparison. There is evidence of right bundle branch block. There is concerning depressions in the lateral leads. No ST elevations. A evaluation obtained. Mild leukocytosis of 14.9, coag panel is unremarkable. Metabolic panel is within acceptable limits. 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 Patient reevaluated at 845 still NIH of 0. She is well-appearing. Case was rediscussed with code stroke physician Dr. Bai who recommends patient be admitted for MRI, medical management and neurology consultation. Patient given aspirin. He had no other recommendations. Patient will be admitted to [facility] group - Related Data Home Medications Medication Instructions Recorded Confirmed Aspirin [Adult Low Dose Aspirin EC] 81 mg PO DAILY 11/09/19 11/25/20 Zolpidem Tartrate [Ambien] 10 mg PO HS 11/09/19 11/25/20 lisinopriL [Zestril] 40 mg PO QAM 11/09/19 11/25/20 ALPRAZolam [Xanax] 0.25 mg PO Q8HR PRN 12/10/19 11/25/20 Atenolol [Tenormin] 50 mg PO QAM 12/10/19 11/25/20 Furosemide [Lasix] 20 mg PO DAILY PRN 12/10/19 11/25/20 Levothyroxine Sodium [Synthroid] 175 mcg PO QAM 12/10/19 11/25/20 Vortioxetine Hydrobromide 20 mg PO QAM 12/10/19 11/25/20 [Trintellix] HYDROcodone/APAP 5-325MG [[place] 1 tab PO Q8H PRN 11/19/20 11/25/20 5-325] Previous Rx's Medication Instructions Recorded oxyCODONE HCL/ACETAMINOPHEN 1 tab PO Q4HR PRN 7 Days #30 tab 11/25/20 [Percocet 7.5-325 mg] Allergies Allergy/AdvReac Type Severity Reaction Status Date / Time No Known Allergies Allergy Verified 11/25/20 09:17 Review of Systems ROS Statement: Those systems with pertinent positive or pertinent negative responses have been documented in the HPI. ROS Other: All systems not noted in ROS Statement are negative. Past Medical History Past Medical History: Coronary Artery Disease (CAD), Cancer, Hypertension, Myocardial Infarction (NC), Thyroid Disorder Additional Past Medical History / Comment(s): 11/2019 left breast cancer, fx rt ankle, current 1/2cast, using wheelchair Last Myocardial Infarction Date:: 2003 History of Any Multi-Drug Resistant Organisms: None Reported Past Surgical History: Breast Surgery, Section, Heart Catheterization With Stent Additional Past Surgical History / Comment(s): 2 CARDIAC STENT PLACED 2003, left breast lumpectomy Past Anesthesia/Blood Transfusion Reactions: No Reported Reaction Date of Last Stent Placement:: 02/2004 Smoking Status: Current every day smoker - Past Family History Mother Family Medical History: Cancer Course Vital Signs 06/21/21 06/21/21 06/21/21 19:14 19:20 19:35 Temperature 98.7 F 98.7 F 98.3 F Pulse Rate 91 91 104 H Respiratory 20 20 18 Rate Blood Pressure 144/113 144/113 135/87 O2 Sat by Pulse 96 96 95 Oximetry 06/21/21 06/21/21 06/21/21 19:50 20:05 20:20 Temperature 98.3 F 98.4 F 98.4 F Pulse Rate 111 H 105 H 102 H Respiratory 18 18 18 Rate Blood Pressure 164/112 155/124 153/113 O2 Sat by Pulse 97 96 95 Oximetry Medical Decision Making - Lab Data Result diagrams: 06/21/21 19:27 06/21/21 19:27 Lab Results 06/21/21 06/21/21 06/21/21 Range/Units 19:26 19:27 19:27 WBC 14.9 H (3.8-10.6) k/uL RBC 4.40 (3.80-5.40) m/uL Hgb 14.8 (11.4-16.0) gm/dL Hct 44.0 (34.0-46.0) % MCV 99.9 (80.0-100.0) fL MCH 33.6 (25.0-35.0) pg MCHC 33.7 (31.0-37.0) g/dL RDW 12.5 (11.5-15.5) % Plt Count 167 (150-450) k/uL MPV 8.3 Neutrophils % 84 % Lymphocytes % 9 % Monocytes % 5 % Eosinophils % 0 % Basophils % 0 % Neutrophils # 12.5 H (1.3-7.7) k/uL Lymphocytes # 1.3 (1.0-4.8) k/uL Monocytes # 0.8 (0-1.0) k/uL Eosinophils # 0.0 (0-0.7) k/uL Basophils # 0.0 (0-0.2) k/uL PT 11.0 (9.0-12.0) sec INR 1.0 (<1.2) APTT 22.0 (22.0-30.0) sec Sodium (137-145) mmol/L Potassium (3.5-5.1) mmol/L Chloride (98-107) mmol/L Carbon Dioxide (22-30) mmol/L Anion Gap mmol/L BUN (7-17) mg/dL Creatinine (0.52-1.04) mg/dL Est GFR (CKD-EPI)AfAm (>60 ml/min/1.73 sqM) Est GFR (CKD-EPI)NonAf (>60 ml/min/1.73 sqM) Glucose (74-99) mg/dL POC Glucose (mg/dL) 168 H (75-99) mg/dL POC Glu Universal [employer]er ID Dante, [place] Calcium (8.4-10.2) mg/dL Total Bilirubin (0.2-1.3) mg/dL AST (14-36) U/L ALT (4-34) U/L Alkaline Phosphatase (38-126) U/L Total Protein (6.3-8.2) g/dL Albumin (3.5-5.0) g/dL 06/21/21 Range/Units 19:27 WBC (3.8-10.6) k/uL RBC (3.80-5.40) m/uL Hgb (11.4-16.0) gm/dL Hct (34.0-46.0) % MCV (80.0-100.0) fL MCH (25.0-35.0) pg MCHC (31.0-37.0) g/dL RDW (11.5-15.5) % Plt Count (150-450) k/uL MPV Neutrophils % % Lymphocytes % % Monocytes % % Eosinophils % % Basophils % % Neutrophils # (1.3-7.7) k/uL Lymphocytes # (1.0-4.8) k/uL Monocytes # (0-1.0) k/uL Eosinophils # (0-0.7) k/uL Basophils # (0-0.2) k/uL PT (9.0-12.0) sec INR (<1.2) APTT (22.0-30.0) sec Sodium 136 L (137-145) mmol/L Potassium 3.4 L (3.5-5.1) mmol/L Chloride 104 (98-107) mmol/L Carbon Dioxide 23 (22-30) mmol/L Anion Gap 9 mmol/L BUN 7 (7-17) mg/dL Creatinine 0.55 (0.52-1.04) mg/dL Est GFR (CKD-EPI)AfAm >90 (>60 ml/min/1.73 sqM) Est GFR (CKD-EPI)NonAf >90 (>60 ml/min/1.73 sqM) Glucose 171 H (74-99) mg/dL POC Glucose (mg/dL) (75-99) mg/dL POC Glu [employer] Banker ID Calcium 9.2 (8.4-10.2) mg/dL Total Bilirubin 1.1 (0.2-1.3) mg/dL AST 150 H (14-36) U/L ALT 26 (4-34) U/L Alkaline Phosphatase 99 (38-126) U/L Total Protein 7.0 (6.3-8.2) g/dL Albumin 3.9 (3.5-5.0) g/dL Critical Care Time Critical Care Time: Yes Total Critical Care Time: 33 Disposition Clinical Impression: Cerebrovascular accident (CVA) Disposition: ADMITTED IP TO THIS HOSP Condition: Critical Referrals: Domenic Little MD [REFERRING] - 1-2 days
--- NOTE | 2021-06-21 19:19 | CT ---
EXAMINATION TYPE: CT brain wo con for TPA DATE OF EXAM: 06/21/2021 COMPARISON: Left side pain HISTORY: Neuro deficiit LT side, code stroke CT DLP: 1132.8 mGycm Automated exposure control for dose reduction was used. Ventricles have normal size. There is no mass effect nor midline shift. There is no sign of intracran ial hemorrhage. There is some white matter hypodensity in the posterior parietal lobes bilaterally. C alvarium is intact. Skull base is intact. There is normal aeration of the mastoid sinuses. IMPRESSION: There is some white matter hypodensity consistent with mild chronic small vessel ischemia.
[2021-06-21 19:27] LABS: Glucose,Whole Blood 168 mg/dL (75-99)
[2021-06-21 19:47] LABS: Basophils % (A) 0 %; Eosinophils % (A) 0 %; HGB 14.8 gm/dL (11.4-16.0); Lymphocytes # (A) 1.3 k/uL (1.0-4.8); Lymphocytes % (A) 9 %; MCH 33.6 pg (25.0-35.0); MCHC 33.7 g/dL (31.0-37.0); MCV 99.9 fL (80.0-100.0); Mean Platelet Volume 8.3; Monocytes # (A) 0.8 k/uL (0-1.0); Monocytes % (A) 5 %; Neutrophils # (A) 12.5 k/uL (1.3-7.7); Neutrophils % (A) 84 %; Platelet Count 167 k/uL (150-450); RDW 12.5 % (11.5-15.5); WBC 14.9 k/uL (3.8-10.6)
--- NOTE | 2021-06-21 20:08 | CT ---
EXAMINATION TYPE: CT angio head neck DATE OF EXAM: 06/21/2021 COMPARISON: None HISTORY: LT side neuro deficit CT DLP: 659.8 mGycm Automated exposure control for dose reduction was used. CONTRAST: Performed with IV Contrast, patient injected with 65 mL of Isovue 370. Images obtained from the aortic arch to the vertex of the brain with IV contrast. There are 3-D post processed images. There is atheromatous change in the aortic arch. There is no aneurysm or dissection. There is bilater al arterial flow in the subclavian arteries. There is arterial flow in the common internal and mailing clerk al carotid arteries. There is plaque formation at both carotid artery bifurcations and estimated 20% stenosis at the origins of the internal carotid arteries. There is arterial flow in both vertebral ar teries. There is no evidence of carotid or vertebral artery aneurysm or dissection. There is arterial flow in the vertebrobasilar artery system. There is arterial flow in both anterior cerebral arteries. There is arterial flow in both posterior c erebral arteries. There is termination of the right middle cerebral artery in the right middle crania l fossa near the bifurcation. There is no significant arterial flow seen in the right sylvian fissure . There is no evidence of intracranial aneurysm or neovascularity. There is no mass effect. There is no rmal enhancement of the venous sinuses. There is some mucosal thickening in the left maxillary sinus. 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 No evidence of hemodynamic stenosis of the cervical carotid and vertebral arteries.
[2021-06-21] MEDS ORDERED: LORazepam 2 MG/ML INJ IV STA ×2 (20:25→21:47)
[2021-06-21] MEDS ORDERED: SODIUM CHLORIDE 0.9% 1,000 ML IV STA ×2 (20:31→21:35)
[2021-06-21 20:35] LABS: ALT 26 U/L (4-34); AST 150 U/L (14-36); African American GFR (CKD) >90 (>60 ml/min/1.73 sqM); Albumin 3.9 g/dL (3.5-5.0); Alkaline Phosphatase 99 U/L (38-126); Anion Gap 9 mmol/L; Blood Urea Nitrogen 7 mg/dL (7-17); Calcium 9.2 mg/dL (8.4-10.2); Carbon Dioxide 23 mmol/L (22-30); Chloride 104 mmol/L (98-107); Glucose 171 mg/dL (74-99); Non-African American GFR(CKD) >90 (>60 ml/min/1.73 sqM); Potassium 3.4 mmol/L (3.5-5.1); Sodium 136 mmol/L (137-145); Total Bilirubin 1.1 mg/dL (0.2-1.3)
--- NOTE | 2021-06-21 20:36 | XR ---
EXAMINATION TYPE: XR chest 2V DATE OF EXAM: 06/21/2021 COMPARISON: 10/07/2017 HISTORY: Left side weakness TECHNIQUE: FINDINGS: Heart and mediastinum are normal. Lungs are clear. Diaphragm is normal. There are chest tamika ds. Bony thorax is intact. IMPRESSION: No active cardiopulmonary disease. No change.
[2021-06-21] MEDS ORDERED: SODIUM CHLORIDE 0.9% 1,000 ML IV SCH (21:00)
[2021-06-21] MEDS ORDERED: METOPROLOL TARTRATE 12.5 MG TAB PO STA ×3 (21:35→23:49)
[2021-06-21] MEDS ORDERED: NITROGLYCERIN OINT 1 INCH/GM PACKET TOPICAL STA (21:35)
[2021-06-21] MEDS ORDERED: ATORVASTATIN 80 MG TAB PO STA (22:39)
[2021-06-21] MEDS ORDERED: CLOPIDOGREL 75 MG TAB PO STA (22:41)
[2021-06-21 22:42] LABS: Glucose,Whole Blood 127 mg/dL (75-99)
[2021-06-21 22:47] VITALS: RESP 18
[2021-06-21] MEDS ORDERED: ASPIRIN 81 MG PO STA (22:49)
[2021-06-21] MEDS ORDERED: TICAGRELOR 90 MG TAB PO STA ×2 (22:50→23:48)
--- NOTE | 2021-06-21 23:40 | CT ---
EXAMINATION TYPE: CT brain wo con DATE OF EXAM: 06/21/2021 COMPARISON: Today HISTORY: possible stroke CT DLP: 1247.4 mGycm Automated exposure control for dose reduction was used. There is some mild hypodensity in the white matter in the posterior parietal lobes. There is no mass effect nor midline shift. There is no sign of intracranial hemorrhage. Calvarium is intact. There is normal aeration of the mastoid sinuses. Ventricles have normal size. IMPRESSION: There is some chronic white matter changes consistent with small vessel ischemia not significantly di fferent than exam earlier today. No acute intracranial abnormality.
[2021-06-21] MEDS ORDERED: ONDANSETRON 4 MG/2 ML VIAL IVP STA (23:44)
[2021-06-22] MEDS ORDERED: LORazepam 2 MG/ML INJ IV STA (00:09)
[2021-06-22 03:29] VITALS: BP 161/96; PULSE 117; TEMP 99
[2021-06-22] MEDS ORDERED: CLOPIDOGREL 75 MG TAB PO SCH (09:00)
[2021-06-22] MEDS ORDERED: ASPIRIN 325 MG TAB PO SCH (09:00)
[2021-06-22] MEDS ORDERED: ATORVASTATIN 80 MG TAB PO SCH (21:00)
== END 2021-06-22 00:32 | disposition other institution (70) ==
LOC: EC 19:02 → 3SCARD 20:51 → UNDOADMIN 20:51 → 2SICU 20:51 → EC 06-22 00:32
DX: I63.9 Cerebral infarction, unspecified (principal); R29.700 NIHSS score 0; I10 Essential (primary) hypertension; I25.10 Atherosclerotic heart disease of native coronary artery without angina pectoris; I25.2 Old myocardial infarction; F17.200 Nicotine dependence, unspecified, uncomplicated; Z79.82 Long term (current) use of aspirin; Z79.890 Hormone replacement therapy; Z79.899 Other long term (current) drug therapy
CPT/HCPCS: 99291; 96374; 96375; 96376 ×2; 96361; 36415; 93005; 80053; 84484; 85025; 85610; 85730; 87635; 71046; 70496; 70450 ×2; 70498; J2060; J2405; Q9967